=== PATIENT | female | born 2000 | race Caucasian/White ===

== ENCOUNTER 2019-02-24 20:07 | Emergency (ER) | payer OTHER ==
[~2019-02-24] VITALS: Ht 167.6 cm; Wt 69.4 kg
[2019-02-24 20:28] VITALS: BP 117/57
[2019-02-24] MEDS ORDERED: IV NORMAL SALINE 1000ML BAG 1,000 ML IV ONE (20:45)
[2019-02-24 21:17] LABS: BASO % 0 % (0-3); EOS # 0.1 x10^3/uL (0.0-0.7); EOS % 1 % (0-3); HEMATOCRIT 32.1 % (36.0-47.0); HEMOGLOBIN 11.1 g/dL (12.0-15.5); LYMPH # 1.3 x10^3/uL (1.0-4.8); LYMPH % 18 % (24-48); MEAN CORPUSCULAR HEMOGLOBIN 30 pg (25-35); MEAN CORPUSCULAR HGB CONC 35 g/dL (31-37); MEAN CORPUSCULAR VOLUME 86 fL (79-100); MONO # 0.5 x10^3/uL (0.0-1.1); MONO % 7 % (0-9); NEUT # 5.5 x10^3uL (1.8-7.7); NEUT % 74 % (31-73); PLATELET COUNT 170 x10^3/uL (140-400); RED BLOOD COUNT 3.74 x10^6/uL (3.50-5.40); RED CELL DISTRIBUTION WIDTH 14.8 % (11.5-14.5); WHITE BLOOD COUNT 7.4 x10^3/uL (4.0-11.0)
[2019-02-24 21:19] LABS: CALCIUM 8.7 mg/dL (8.5-10.1); CREATININE 0.6 mg/dL (0.6-1.0); GFR 127.5; POTASSIUM 3.5 mmol/L (3.5-5.1)
[2019-02-24 21:20] LABS: BILIRUBIN,URINE NEGATIVE (NEG); CLARITY,URINE CLEAR; COLOR,URINE YELLOW; NITRITE,URINE NEGATIVE (NEG); PROTEIN,URINE NEGATIVE (NEG-TRACE)
[2019-02-24 21:24] LABS: ALBUMIN 3.2 g/dL (3.4-5.0); ALBUMIN/GLOBULIN RATIO 0.8 (1.0-1.7); SQUAMOUS EPITHELIAL CELL,UR MANY /LPF; TOTAL BILIRUBIN 0.4 mg/dL (0.2-1.0); TOTAL PROTEIN 7.1 g/dL (6.4-8.2)
[2019-02-24 21:25] LABS: BACTERIA,URINE MODERATE /HPF (0-FEW); RBC,URINE 0 /HPF (0-2)
[2019-02-24 21:30] LABS: TRICHOMONAS,URINE PRESENT
[2019-02-24] MEDS ORDERED: ONDANSETRON PF 4 MG/2 ML VIAL. IV ONE (21:30)
[2019-02-24 21:33] LABS: WBC,URINE 20-40 /HPF (0-4)
--- NOTE | 2019-02-24 22:19 | RAD ---
EXAM: OBSTETRIC ULTRASOUND <14 WEEKS. HISTORY: Abdominal pain and vaginal bleeding in . FINDINGS: Sonographic evaluation of the pelvis was performed transabdominally and transvaginally. A single intrauterine gestation measures 15 weeks 3 days. heart rate is 141 bpm. Position is transverse. Individual measurements are commensurate. The placenta is posterior and right lateral. Amniotic fluid volume is visually normal. There is no subchorionic collection. The maternal adnexa are not visualized currently. IMPRESSION: 1. Single intrauterine gestation measuring 15 weeks 3 days. heart rate 141 bpm. Electronically signed by: Lucila Staples MD (02/24/2019 10:16 PM) [facility]
[2019-02-24] MEDS ORDERED: NITROFURANTOIN MONOHYD/M-CRYST 100 MG CAPSULE. PO ONE (22:30)
[2019-02-24] MEDS ORDERED: NITR100C62 PO (22:32)
[2019-02-24] MEDS ORDERED: ONDA4TAB7 PO (22:32)
--- NOTE | 2019-02-24 22:32 | PHYS DOC ---
Past Medical History Past Medical History: No Pertinent History (DAINA LYN) Past Surgical History: No Surgical History (DAINA LYN) Alcohol Use: None Drug Use: None (DAINA LYN) Adult General Chief Complaint Chief Complaint: ABDOMINAL PAIN IN HPI HPI Patient is a 18 year old F who is about 14 weeks with her first . Today she is here due to nausea, vomiting and upper abd cramping. The chief complaints states vaginal bleeding so I asked pt about that and she said that was a couple weeks ago and it was a brown spot in her underwear. Pt states she had an OB appt at 7 weeks and ultrasound done to confirm but has not been back since that time. She was prescribed Zofran at that time, which she states works if its the SL tab but she cannot tolerate the Zofran tablets. Pt's boyfriend is here with her and states he has 4 other children and that his prior SO's pregnancies did not have so much nausea and vomiting. I discussed with him that every women's is different. Of note, pt is sipping on blue gatorade in the room. (DAINA LYN) Review of Systems Review of Systems Constitutional: Denies fever or chills Respiratory: Denies cough or shortness of breath Cardiovascular: Denies chest pain GI: Denies abdominal pain, constipation or diarrhea. Reports nausea and vomiting. : Denies vaginal discharge or bleeding. Musculoskeletal: Denies back pain or joint pain Integument: Denies rash or skin lesions Neurologic: Denies headache, focal weakness or sensory changes All other systems were reviewed and found to be within normal limits, except as documented in this note. (DAINA LYN) Current Medications Current Medications Current Medications Medications (Trade) Dose Ordered Sig/Mark Start Time Stop Time Status Last Admin Dose Admin Nitrofurantoin Macrocrystals (Macrobid) 100 mg 1X ONCE 02/24/19 22:30 02/24/19 22:31 DC 02/24/19 22:11 100 MG Ondansetron HCl (Zofran) 4 mg 1X ONCE 02/24/19 21:30 02/24/19 21:31 DC 02/24/19 22:04 4 MG Sodium Chloride 1,000 ml @ 1,000 mls/hr 1X ONCE 02/24/19 20:45 02/24/19 21:44 DC 02/24/19 20:58 1,000 MLS/HR (SRINATH VALENTINE MD) Allergies Allergies Allergies Coded Allergies Type Severity Reaction Last Updated Verified Penicillins Allergy Intermediate 02/24/19 Yes amoxicillin Allergy Intermediate 02/24/19 Yes (SRINATH VALENTINE MD) Physical Exam Physical Exam Constitutional: Well developed, well nourished, no acute distress, non-toxic appearance. HENT: Normocephalic, atraumatic, mucous membranes moist. Neck: Normal range of motion, no tenderness, supple, no stridor. Cardiovascular:Heart rate regular rhythm, no murmur Lungs & Thorax: Bilateral breath sounds clear to auscultation Abdomen: Bowel sounds normal, soft, no tenderness, no masses, no pulsatile masses. Skin: Warm, dry, no erythema, no rash. Back: No tenderness, no CVA tenderness. Extremities: No tenderness, no cyanosis, no clubbing, ROM intact, no edema. Neurologic: Alert and oriented X 3, normal motor function, normal sensory function, no focal deficits noted. Psychologic: Affect normal, judgement normal, mood normal. (DAINA LYN) Current Patient Data Vital Signs Vital Signs Date Time Temp Pulse Resp B/P (MAP) Pulse Ox O2 Delivery O2 Flow Rate FiO2 02/24/19 20:28 98.5 86 16 117/57 (77) 98 Room Air 98.5 (SRINATH VALENTINE MD) Lab Values Laboratory Tests Test 02/24/19 21:00 02/24/19 21:02 White Blood Count 7.4 x10^3/uL (4.0-11.0) Red Blood Count 3.74 x10^6/uL (3.50-5.40) Hemoglobin 11.1 g/dL (12.0-15.5) L Hematocrit 32.1 % (36.0-47.0) L Mean Corpuscular Volume 86 fL (79-100) Mean Corpuscular Hemoglobin 30 pg (25-35) Mean Corpuscular Hemoglobin Concent 35 g/dL (31-37) Red Cell Distribution Width 14.8 % (11.5-14.5) H Platelet Count 170 x10^3/uL (140-400) Neutrophils (%) (Auto) 74 % (31-73) H Lymphocytes (%) (Auto) 18 % (24-48) L Monocytes (%) (Auto) 7 % (0-9) Eosinophils (%) (Auto) 1 % (0-3) Basophils (%) (Auto) 0 % (0-3) Neutrophils # (Auto) 5.5 x10^3uL (1.8-7.7) Lymphocytes # (Auto) 1.3 x10^3/uL (1.0-4.8) Monocytes # (Auto) 0.5 x10^3/uL (0.0-1.1) Eosinophils # (Auto) 0.1 x10^3/uL (0.0-0.7) Basophils # (Auto) 0.0 x10^3/uL (0.0-0.2) Urine Collection Type Unknown Urine Color Yellow Urine Clarity Clear Urine pH 6.0 Urine Specific [place] 1.020 Urine Protein Negative mg/dL (NEG-TRACE) Urine Glucose (UA) Negative mg/dL (NEG) Urine Ketones (Stick) Trace mg/dL (NEG) Urine Blood Negative (NEG) Urine Nitrite Negative (NEG) Urine Bilirubin Negative (NEG) Urine Urobilinogen Dipstick 1.0 mg/dL (0.2 mg/dL) Urine Leukocyte Esterase Moderate (NEG) Urine RBC 0 /HPF (0-2) Urine WBC 20-40 /HPF (0-4) Urine Squamous Epithelial Cells Many /LPF Urine Bacteria Moderate /HPF (0-FEW) Urine Mucus Marked /LPF Urine Trichomonas Present Maternal Serum HCG Beta Subunit 16364 mIU/mL (0-5) H Sodium Level 140 mmol/L (136-145) Potassium Level 3.5 mmol/L (3.5-5.1) Chloride Level 104 mmol/L (98-107) Carbon Dioxide Level 22 mmol/L (21-32) Anion Gap 14 (6-14) Blood Urea Nitrogen 7 mg/dL (7-20) Creatinine 0.6 mg/dL (0.6-1.0) Estimated GFR (Cockcroft-Gault) 127.5 BUN/Creatinine Ratio 12 (6-20) Glucose Level 93 mg/dL (70-99) Calcium Level 8.7 mg/dL (8.5-10.1) Total Bilirubin 0.4 mg/dL (0.2-1.0) Aspartate Amino Transferase (AST) 11 U/L (15-37) L Alanine Aminotransferase (ALT) 13 U/L (14-59) L Alkaline Phosphatase 63 U/L (46-116) Total Protein 7.1 g/dL (6.4-8.2) Albumin 3.2 g/dL (3.4-5.0) L Albumin/Globulin Ratio 0.8 (1.0-1.7) L POC Urine HCG, Qualitative Hcg positive (Negative) Laboratory Tests 02/24/19 21:00 Laboratory Tests 02/24/19 21:00 Microbiology 02/24/19 Urine Culture - Final, Complete 02/24/19 Urine Culture Result 1 (OTIS) - Final, Complete (SRINATH VALENTINE MD) EKG EKG [] (DAINA LYN) Radiology/Procedures Radiology/Procedures [] (DAINA LYN) Course & Med Decision Making Course & Med Decision Making Pertinent Labs and Imaging studies reviewed. (See chart for details) Labs reassuring. Pt has urinary tract infection and is allergic to PCN and not sure if she ever had cephalosporins. Will cover with Macrobid. ultrasound done and shows 15 week gestation with strong heart beat. Pt given name and number for monotype mechanic OB. Encouraged to f/u and discuss her N/ V. She was given IV fluids and zofran and at time of discharge, she was eating peanut M&Ms and tolerating her fluids in the room. (DAINA LYN) Course & Med Decision Making Staff Physician Addendum: I was working in the ER during the course of this patient's visit. I was available for consultation as needed, but I was not directly involved in the care of this patient. (SRINTAH VALENTINE MD) Dragon Disclaimer Dragon Disclaimer This electronic medical record was generated, in whole or in part, using a voice recognition dictation system. (DAINA LYN) Departure Departure Impression: Primary Impression: Nausea & vomiting Additional Impressions: Urinary tract infection Disposition: 01 HOME, SELF-CARE Condition: IMPROVED Referrals: NO PCP (PCP) ASHLEY FORMAN MD Patient Instructions: Diet - Hyperemesis Gravidarum, Hyperemesis Gravidarum Additional Instructions: Push fluids, bland diet and follow up closely with accredited pharmacy technician. Scripts Ondansetron Hcl (ZOFRAN) 4 Mg Tablet 1 TAB PO Q8HRS PRN for NAUSEA/VOMITING, #15 TAB Prov: DAINA LYN 02/24/19 Nitrofurantoin Monohyd/M-Cryst (MACROBID 100 MG CAPSULE) 100 Mg Capsule 1 CAP PO BID, #14 CAP Prov: DAINA LYN 02/24/19 Problem Qualifiers DAINA LYN Feb 24, 2019 22:32 SRINATH VALENTINE MD Mar 01, 2019 02:17
== END 2019-02-24 22:57 | disposition home or self-care (01) ==
LOC: ER 20:07
DX: O21.8 Other vomiting complicating pregnancy (principal); O23.42 Unspecified infection of urinary tract in pregnancy, second trimester; Z88.0 Allergy status to penicillin; Z88.1 Allergy status to other antibiotic agents; Z3A.15 15 weeks gestation of pregnancy
CPT/HCPCS: 36415; 76801; 80053; 81001; 81025; 84702; 85025; 87086; 96361; 96374; 99285; J2405; J7030